=== PATIENT | female | born 1955 | race Caucasian/White ===

== ENCOUNTER → 2019-07-14 | Outpatient (CLI) | payer BC ==
[~2019-07-14] VITALS: Ht 154.9 cm; Wt 103.2 kg
[~2019-07-14] MED LIST: CETI10TA17 PO; CYCLOBENZAPRINE; FRS325T; FURO40TA4 PO; GLBR5T; INSU100C4 SQ; INSU100I14 SQ; LIDOCAINE 1% INJ 20 ML 20 ML VIAL INJ ONE; LIDOCAINE 1% INJ 20 ML 20 ML VIAL ONE; MELOXICAM; METF-380; METO-351 PO; MTF500T; MULT-608; OMEP-10; OMG1KC; POTASSIUM; RSG4T; SIMVASTATIN; SRTR100T
--- NOTE | 2019-07-14 21:01 | Diagnostic Imaging Report ---
INDICATION: Left breast calcifications. Patient presents for stereotactic biopsy. Patient was brought to the stereotactic suite, placed in a chair in a sitting upright position. Left breast was positioned mediolateral. Stereotactic imaging was performed for targeting purposes. The cluster of microcalcifications in the upper inner left breast were stereotactically targeted. The medial left breast was then prepped and draped in the usual sterile fashion. Small amount of 1% lidocaine was utilized for local anesthesia. An 8-gauge needle was advanced from a mediolateral approach and place with its tip per stereotactic coordinates. Additional lidocaine was administered. A total of 4 core biopsies were obtained with the vacuum assisted device. Specimen radiograph was obtained demonstrating numerous microcalcifications and specimen labeled #2 and 3. Next, a marker clip was deployed. Needle was removed and hemostasis was obtained using manual compression. Followup 2-D mammogram in the CC and ML projections were obtained. A marker clip is seen in the upper medial left breast. IMPRESSION: Stereotactic biopsy of the cluster of microcalcifications upper inner left breast posterior depth. Pathology results are currently pending. Dictated by: Dictated on workstation # [id number]
== END ==
LOC: RAD 09:53
PROVIDERS: ATTEND Family Medicine
DX: R92.0 Mammographic microcalcification found on diagnostic imaging of breast (principal)
CPT/HCPCS: 19081

== ENCOUNTER 2019-07-21 10:03 | Outpatient (RCR) | payer BC ==
[~2019-07-21 10:03] MED LIST changes: -LIDOCAINE 1% INJ 20 ML 20 ML VIAL INJ ONE; -LIDOCAINE 1% INJ 20 ML 20 ML VIAL ONE
== END 2019-10-19 | disposition home or self-care (01) ==
LOC: ONC 10:03
PROVIDERS: ATTEND Internal Medicine Hematology & Oncology
DX: D05.12 Intraductal carcinoma in situ of left breast (principal); J44.9 Chronic obstructive pulmonary disease, unspecified; E78.5 Hyperlipidemia, unspecified; E03.9 Hypothyroidism, unspecified
CPT/HCPCS: 99214